=== PATIENT | female | born 1930 | race Caucasian/White ===

== ENCOUNTER 2018-02-13 05:23 | Day surgery (SDC) | payer OTHER, BC ==
[~2018-02-13] VITALS: Ht 160 cm; Wt 61.2 kg
--- NOTE | ~2018-02-13 | O ---
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 OPERATIVE PROCEDURE: Revision left maxillary antrostomy and anterior ethmoidectomy in conjunction with a dacryocystorhinostomy with Dr. Alexander. ANESTHESIA: General by laryngeal mask. DESCRIPTION OF PROCEDURE: The patient was taken to the operating room and placed in supine position. General anesthesia was induced by laryngeal mask. Once adequate general anesthesia was obtained, local nasal anesthesia was induced by topical application of cocaine solution. The patient was draped in a sterile manner. Dr. Alexander performed a dacryocystorhinostomy through an external approach. Using the nasal endoscope, I took down the remnant of the uncinate process and then followed this upward through a scarred tissue into the lacrimal sac. I helped Dr. Alexander take some bone down from the lacrimal bone in order to create a large opening into the lacrimal sac. I made sure that the uncinate process was completely free and then took the anterior ethmoids all the way to the front of the lacrimal bone. I then helped Dr. Alexander pass his tubes, the Choe tubes, through the lacrimal sac and out into the nasal cavity. I placed FloSeal for hemostasis into the anterior ethmoid area and the anterior maxillary antrostomy area. The patient tolerated the procedure well and blood loss was 10 mL. <ELECTRONICALLY SIGNED> By: Anselmo Burrows MD 02/23/18 1330 1625 1713 Anselmo Burrows MD /nt
--- NOTE | ~2018-02-13 | O ---
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 PROCEDURE: Left incisional dacryocystorhinostomy with silicone lacrimal intubation. SURGEON: Kingsley Alexander MD MECHANICAL DESIGNER: Anselmo Burrows MD ANESTHESIA: General. COMPLICATIONS: None. INDICATIONS FOR SURGERY: This pleasant 87-year-old woman has a prior history of trauma in her left medial canthal area, which eventuated in the development of dacryocystitis. She has had prior lacrimal interventions, which have been unfortunately unsuccessful in reestablishing patent lacrimal outflow because she experiences recurrent sinusitis. She has also had several sinus procedures to try to improve that milieu. She presents today with her sinuses thought to be in the best condition possible for a repeat incisional dacryocystorhinostomy done in conjunction with nasal surgical debridement done by Dr. Burrows in order to give her the best chance with patent lacrimal outflow. Informed consent was obtained to include but not limited to the potential risk for loss of vision, bleeding, infection, failure to improve the problem, the potential need for further surgery or treatment. DESCRIPTION OF PROCEDURE: The patient was taken to the operating room where general anesthesia was administered. The left medial canthal area and the left lateral wall of the nose were then generously infiltrated with Xylocaine with epinephrine mixed with Marcaine and Wydase. Dr. Burrows packed the nose with cocaine. After being sterilely prepped and draped and receiving intravenous antibiotics, an incision was then made over the left-sided anterior lacrimal crest. [address] [address] OPERATIVE REPORT Name: HAKANDALI Room #: DEP [facility] M.Andrews.#: [id number] Admission: 02/13/18 Attend Phys: Kingsley Alexander MD Discharge: 02/13/18 Date of : [birth year] Report #: [id number] Hemostasis was achieved with diligent monopolar cautery as it was throughout the case. The dissection was then carried down to the nasal bone. The lacrimal sac tissue was then retracted laterally back up to the prior ostium. The nasal mucosa was injected with the same anesthetic mixture. It appeared to be quite friable, so no attempt was made to create flaps for the new ostium. This tissue was excised. Dr. Burrows then came transnasally and opened up the ostium for the lacrimal sac to drain into the middle meatus. Choe tubes were then passed through the superior and inferior canaliculi and drawn down into the lacrimal sac area. Dr. Burrows removed some additional bone superiorly and posteriorly to allow easy access of the lacrimal sac to ventilate into the middle meatus. The Choe tubes were then passed into the nasal vault where they were secured to themselves with 3 square throws and then to the lateral wall of the nose with a 5-0 Prolene suture. The lacrimal sac tissue as it was, was considerably scarred. This was somewhat surprising considering the amount of mucoid material that she appeared to be able to accumulate with her infections. The wound was closed with subcutaneous 4-0 chromic sutures deep and then 6-0 plain gut sutures superficially. The eye was then dressed with Maxitrol drops, erythromycin ointment, Telfa pad, two eye pads and paper tape. Dr. Burrows then completed the intranasal portion of his procedure. The patient was subsequently transported to the recovery area having tolerated the procedures well with no anesthetic or operative complications being noted. <ELECTRONICALLY SIGNED> By: Kingsley Alexander MD 02/20/18 0616 1626 1756 Kingsley Alexander MD /nt
[~2018-02-13 05:23] MED LIST: ACTOS OR; ADULT LOW DOSE81 MG PO; ALPRAZOLAM 0.0.25 M1 PO; BETIMOL10 ML; BETIMOL5 ML OPHTHALMIC; BONIVA150 MG PO; CARDIZEM CD240 MG OR; CARDIZEM LA180 M1 PO; HYDROCHLOROTHIA25 M1 OR; HYDROCODONE-APA1 TA1 PO; LISINOPRIL40 MG OR; LOPRESSOR50 MG PO; MIRALAX17 GM PO; NEOSPORIN EYE D10 ML OP; OS-CAL 500+D31 EAC1 PO; TOPROL XL50 MG OR; XALATAN2.5 ML
[2018-02-13 14:35] VITALS: BP 190/72
== END 2018-02-13 17:30 | disposition home or self-care (01) ==
LOC: OR 05:23 → TBA 05:24 → OR 12:38
DX: H04.552 Acquired stenosis of left nasolacrimal duct (principal); H04.412 Chronic dacryocystitis of left lacrimal passage; J32.2 Chronic ethmoidal sinusitis; J32.0 Chronic maxillary sinusitis; I10 Essential (primary) hypertension; E11.9 Type 2 diabetes mellitus without complications; H40.9 Unspecified glaucoma; F41.8 Other specified anxiety disorders; Z85.828 Personal history of other malignant neoplasm of skin; Z98.41 Cataract extraction status, right eye; Z98.42 Cataract extraction status, left eye; Z96.1 Presence of intraocular lens; Z98.890 Other specified postprocedural states; Z79.899 Other long term (current) drug therapy; Z88.0 Allergy status to penicillin; Z88.2 Allergy status to sulfonamides; Z79.82 Long term (current) use of aspirin
CPT/HCPCS: 50010; 50101; 50386; 50398; 51636; 51751; 51777; 56528; 56531; 56635; 62110; 62900; 64037; 70005